=== PATIENT | female | born 2000 | race Caucasian/White ===

== ENCOUNTER 2024-06-08 11:40 | Emergency (ER) | payer SELFPAY ==
[~2024-06-08] VITALS: Ht 162.6 cm; Wt 61.7 kg
[2024-06-08] MEDS ORDERED: PRED50TA PO (13:13)
[2024-06-08] MEDS ORDERED: predniSONE 50 MG TABLET ONE (13:20)
[2024-06-08] MEDS: predniSONE 50 MG TABLET PO ONE (13:22)
[2024-06-08 13:26] VITALS: BP 115/71; O2SAT 98
== END 2024-06-08 13:27 | disposition home or self-care (01) ==
LOC: ER 11:40
DX: L23.9 Allergic contact dermatitis, unspecified cause (principal); Z79.52 Long term (current) use of systemic steroids; Z87.19 Personal history of other diseases of the digestive system; Z60.2 Problems related to living alone
CPT/HCPCS: 99283; J7512; A4606; A4663